=== PATIENT | male | born 1975 | race African-American/Black ===

== ENCOUNTER 2018-06-26 09:42 | Inpatient (IN) | payer OTHER ==
[2018-06-26 10:12] VITALS: BMI 24.7
--- NOTE | 2018-06-26 10:37 | HP ---
CIWA Score Nausea/Vomitin Muscle Tremors: 4-Moderate,w/Arms Extend Anxiety: 4-Mod. Anxious/Guarded Agitation: 0-Normal Activity Paroxysmal Sweats: 1-Minimal Palms Moist Orientation: 0-Oriented Tacttile Disturbances: 2-Mild Itch/Numbness/Burn Auditory Disturbances: 1-Very Mild Visual Disturbances: 2-Mild Sensitivity Headache: 1-Very Mild CIWA-Ar Total Score: 17 - Admission Criteria OASAS Guidelines: Admission for Medically Managed Detox: Requires at least one of the followin. CIWA greater than 12 2. Seizures within the past 24 hours 3. Delirium tremens within the past 24 hours 4. Hallucinations within the past 24 hours 5. Acute intervention needed for co occurring medical disorder 6. Acute intervention needed for co occurring psychiatric disorder 7. Severe withdrawal that cannot be handled at a lower level of care (continued vomiting, continued diarrhea, abnormal vital signs) requiring intravenous medication and/or fluids 8. Patient presents the following: CIWA greater than 12 Admission Criteria Met: Admission criteria met Admission ROS S - HPI Chief Complaint: I don't want to from this, I'm killing myself with alcohol Allergies/Adverse Reactions: Allergies Allergy/AdvReac Type Severity Reaction Status Date / Time No Known Allergies Allergy Verified 06/26/18 10:13 History of Present Illness: 42 yo gentleman here for detox from alcohol. Was in [place] ED last night seeking help, given a 'banana bag' and librium and referred for detox. Denies seizures but has had black outs and gets severe withdrawal symptoms. urine tox + bzo due to librium given in ED - does not use separately. He has a residence but unable to hold down a job. Drinks first thing in the morning to quell his shakes. Exam Limitations: No Limitations - Ebola screening Have you traveled outside of the country in the last 21 days: No (N) Have you had contact with anyone from an Ebola affected area: No Do you have a fever: No - Review of Systems Constitutional: Chills, Loss of Appetite, Malaise, Night Sweats, Changes in sleep, Weakness, Unintentional Wgt. Loss EENT: reports: Blurred Vision Respiratory: reports: No Symptoms reported Cardiac: reports: Chest Tightness GI: reports: Poor Appetite, Poor Fluid Intake, Abdominal cramping : reports: Frequency Musculoskeletal: reports: Back Pain, Joint Pain, Muscle Pain Integumentary: reports: Dryness Neuro: reports: Numbness, Tingling, Tremors Endocrine: reports: No Symptoms Reported Hematology: reports: No Symptoms Reported Psychiatric: reports: Judgement Intact, Mood/Affect Appropiate, Orientated x3, Anxious Other Systems: Reviewed and Negative Patient History - Patient Medical History Hx Anemia: No Hx Asthma: No Hx Chronic Obstructive Pulmonary Disease (COPD): No Hx Cancer: No Hx Cardiac Disorders: No Hx Congestive Heart Failure: No Hx Hypertension: No Hx Hypercholesterolemia: No Hx Pacemaker: No HX Cerebrovascular Accident: No Hx Seizures: No Hx Diabetes: No Hx Gastrointestinal Disorders: No Hx Liver Disease: No Hx Genitourinary Disorders: No Hx Sexually Transmitted Disorders: No Hx Renal Disease (ESRD): No Hx Thyroid Disease: No Hx Human Immunodeficiency Virus (HIV): No Hx Hepatitis C: No Hx Depression: Yes (hospitalized in past, hx meds (zoloft,abilify,seroquel)) Hx Suicide Attempt: Yes (in 2007 - took pills) Hx Bipolar Disorder: Yes (not sure 'they said I do') Hx Schizophrenia: No - Patient Surgical History Past Surgical History: No - PPD History Previous Implant?: Yes Documented Results: Negative w/proof Implanted On Prior R Admission?: No PPD to be Administered?: Yes - Reproductive History Patient is a Female of Child Bearing Age (11 -55 yrs old): No - Smoking Cessation Smoking history: Current every day smoker Have you smoked in the past 12 months: Yes Aproximately how many cigarettes per day: 8 Hx Chewing Tobacco Use: No Initiated information on smoking cessation: Yes 'Breaking Loose' booklet given: 06/26/18 (give on floor) - Substance & Tx. History Hx Alcohol Use: Yes Hx Substance Use: No Substance Use Type: Alcohol Hx Substance Use Treatment: Yes (detox, rehab) - Substances abused Alcohol Substance route: Oral Frequency: Daily Amount used: 2 pints vodka Age of first use: 22 Date of last use: 06/25/18 Family Disease History - Family Disease History Family Disease History: CA: Mother (, breast ca, hx drugs), Other: Father (,murdered,), Mother, Brother (two - living), Son (two - living - ages 19, 6) Admission Physical Exam BHS - Vital Signs Vital Signs: Vital Signs - 24 hr 06/26/18 10:04 Temperature 99.0 F Pulse Rate 87 Respiratory 18 Rate Blood Pressure 125/90 - Physical General Appearance: Yes: Nourished, Appropriately Dressed, Mild Distress HEENTM: Yes: Hearing grossly Normal, Normocephalic, Normal Voice, Pharynx Normal Respiratory: Yes: Normal Breath Sounds, No Respiratory Distress Neck: Yes: No masses,lesions,Nodules Breast: Yes: Breast Exam Deferred Cardiology: Yes: Regular Rhythm Abdominal: Yes: Flat, Soft, Other (mild tenderness LLQ, no rebound) Genitourinary: Yes: Frequency Back: Yes: Normal Inspection Musculoskeletal: Yes: full range of Motion, Gait Steady, Back pain, Muscle Pain Extremities: Yes: Normal Capillary Refill, Normal Inspection, Normal Range of Motion Neurological: Yes: Fully Oriented, Alert, Motor Strength 5/5, Normal Mood/Affect , Normal Response, Numbness Integumentary: Yes: Normal Color, Dry, Warm Lymphatic: Yes: Within Normal Limits - Diagnostic (1) Alcohol dependence with uncomplicated withdrawal Current Visit: Yes Status: Chronic (2) Nicotine dependence Current Visit: Yes Status: Chronic Qualifiers: Nicotine product type: cigarettes Substance use status: uncomplicated Qualified Code(s): F17.210 - Nicotine dependence, cigarettes, uncomplicated (3) Dehydration Current Visit: Yes Status: Chronic Cleared for Admission [facility] - Detox or Rehab [facility] Level of Care: Medically Managed Detox Regimen/Protocol: Librium Inpatient Rehab Admission - Rehab Decision to Admit Inpatient rehab admission?: No
[2018-06-26] MEDS ORDERED: MAGNESIUM HYDROX 2400MG/30ML ORAL SUSPENSION 30 ML CUP PO PRN (10:41)
[2018-06-26] MEDS ORDERED: MENTHOL/PHENOL 1 EACH UD MM PRN (10:41)
[2018-06-26] MEDS ORDERED: chlordiazePOXIDE HCL 25 MG CAPSULE PO PRN (10:41)
[2018-06-26] MEDS ORDERED: ONDANSETRON *ODT* 4 MG TABLET SL PRN (10:41)
[2018-06-26] MEDS ORDERED: ACETAMINOPHEN 325 MG TABLET (FP) PO PRN (10:41)
[2018-06-26] MEDS ORDERED: NICOTINE POLACRILEX 4 MG GUM BUC PRN (10:41)
[2018-06-26] MEDS ORDERED: MAGNESIUM CITRATE 300 ML BOTTLE PO PRN (10:41)
[2018-06-26] MEDS ORDERED: MAG HYDROX/AL HYDROX/SIMETH 30 ML UNIT-DOSE CUP PO PRN (10:41)
[2018-06-26] MEDS ORDERED: BISMUTH SUBSALICYLATE 524 MG/30 ML UD PO PRN (10:41)
[2018-06-26] MEDS ORDERED: chlordiazePOXIDE HCL 25 MG CAPSULE PO ONE (11:00)
[2018-06-26] MEDS ORDERED: chlordiazePOXIDE HCL 25 MG CAPSULE PO SCH (11:00)
[2018-06-26] MEDS: NICOTINE 14 MG/24 HOURS TOPICAL PATCH TD SCH (11:37)
[2018-06-26] MEDS: chlordiazePOXIDE HCL 25 MG CAPSULE PO SCH ×2 (17:50→22:18)
[2018-06-26] MEDS: MELATONIN 5 MG TABLETS PO PRN (22:19)
[2018-06-26] MEDS: THIAMINE HCL 100 MG TABLET (FP) PO SCH (22:20)
[2018-06-26] MEDS: IBUPROFEN 400 MG TABLET (FP) PO PRN (22:22)
[2018-06-27] MEDS: hydrOXYzine PAMOATE 25 MG CAPSULE (FP) PO PRN ×2 (02:16→12:56)
[2018-06-27] MEDS: chlordiazePOXIDE HCL 25 MG CAPSULE PO SCH ×5 (05:58→22:53)
[2018-06-27] MEDS: METHOCARBAMOL 500 MG TABLET PO PRN ×3 (06:00→20:37)
[2018-06-27 10:22] LABS: HEMATOCRIT 40.1 % (35.4-49); HEMOGLOBIN 13.4 GM/dL (11.7-16.9); MCH 32.6 pg (25.7-33.7); MCHC 33.5 g/dl (32.0-35.9); MEAN CELL VOLUME 97.2 fl (80-96); MEAN PLT VOLUME 10.1 fl (7.5-11.1); PLATELET COUNT 118 K/MM3 (134-434); RBC 4.12 M/mm3 (4.00-5.60); RDW 14.5 % (11.9-15.9); WHITE BLOOD COUNT 4.6 K/mm3 (4.0-10.0)
[2018-06-27 10:32] LABS: ALBUMIN 3.2 g/dl (3.4-5.0); BILIRUBIN,TOTAL 0.5 mg/dL (0.2-1); CALCIUM 8.8 mg/dL (8.5-10.1); CREATININE 0.5 mg/dL (0.55-1.3); POTASSIUM 3.6 mmol/L (3.5-5.1); TOT PROT 5.8 g/dl (6.4-8.2)
[2018-06-27] MEDS: PRENATAL VITAMINS W/ FOLIC ACID TABLET (FP) PO SCH (10:48)
[2018-06-27] MEDS: NICOTINE 14 MG/24 HOURS TOPICAL PATCH TD SCH (10:49)
--- NOTE | 2018-06-27 12:22 | EKG ---
Test Reason : Blood Pressure : / mmHG Vent. Rate : 072 BPM Atrial Rate : 072 BPM P-R Int : 158 ms QRS Dur : 090 ms QT Int : 392 ms P-R-T Axes : 063 064 056 degrees QTc Int : 429 ms NORMAL SINUS RHYTHM NORMAL ECG NO PREVIOUS ECGS AVAILABLE Confirmed by NIKHIL THORPE MD ([id number]) on 06/27/2018 12:22:34 PM Referred By: Confirmed By:NIKHIL THORPE MD
--- NOTE | 2018-06-27 15:07 | PN ---
[facility] CIWA - CIWA Score Nausea/Vomitin-Mild Nausea/No Vomiting Muscle Tremors: 4-Moderate,w/Arms Extend Anxiety: 4-Mod. Anxious/Guarded Agitation: 3 Paroxysmal Sweats: 3 Orientation: 0-Oriented Tacttile Disturbances: 0-None Auditory Disturbances: 0-None Visual Disturbances: 0-None Headache: 0-None Present CIWA-Ar Total Score: 15 S Progress Note (SOAP) Subjective: Lots of sweating (soaked), interrupted sleep, anxious Objective: 06/27/18 15:03 Last Vital Signs Temp Pulse Resp BP Pulse Ox 97.6 F 87 18 142/92 06/27/18 14:21 06/27/18 14:21 06/27/18 14:21 06/27/18 14:21 Elevated b/p: 142/92 (denies htn; started on clonidine 0.1mg PO q8hr prn if b/p > 140/90 Laboratory Tests 06/27/18 06/27/18 06/27/18 07:50 07:50 07:50 WBC 4.6 RBC 4.12 Hgb 13.4 Hct 40.1 MCV 97.2 H MCH 32.6 MCHC 33.5 RDW 14.5 Plt Count 118 L MPV 10.1 Sodium 139 Potassium 3.6 Chloride 105 Carbon Dioxide 28 Anion Gap 5 L BUN 9 Creatinine 0.5 L Est GFR (CKD-EPI)AfAm 156.00 Est GFR (CKD-EPI)NonAf 134.60 Random Glucose 101 Calcium 8.8 Total Bilirubin 0.5 AST 73 H ALT 104 H Alkaline Phosphatase 85 Total Protein 5.8 L Albumin 3.2 L RPR Titer Nonreactive Labs reviewed: plt 118 Assessment: 06/27/18 15:07 Withdrawal symptoms Noted with mild thrombocytopenia and elevated b/p Plan: Continue detox Encouraged PO water intake Thrombocytopenia: most likely r/t alcoholism, encouraged abstinence from alcohol , follow up with PCP for monitoring Elevated b/p: denies htn; start clonidine 0.1mg PO q8hr prn if b/p > 140/90
[2018-06-27] MEDS: cloNIDine HCL 0.1 MG TABLET PO PRN (18:17)
--- NOTE | 2018-06-27 18:49 | PN ---
BHS Progress Note Note: C/o increased anxiety. Vital Signs 06/27/18 06/27/18 14:21 18:18 Temperature 97.6 F 97.2 F L Pulse Rate 87 82 Respiratory 18 18 Rate Blood Pressure 142/92 117/82 Medications adjusted.
[2018-06-27] MEDS: hydrOXYzine PAMOATE 50 MG CAPSULE (FP) PO PRN (20:37)
[2018-06-27] MEDS: THIAMINE HCL 100 MG TABLET (FP) PO SCH (22:53)
[2018-06-27] MEDS: NAPROXEN 375 MG TABLET (FP) PO PRN (22:53)
[2018-06-27] MEDS: MELATONIN 5 MG TABLETS PO PRN (22:53)
[2018-06-28] MEDS: chlordiazePOXIDE HCL 25 MG CAPSULE PO SCH (05:50)
[2018-06-28] MEDS: METHOCARBAMOL 500 MG TABLET PO PRN (05:52)
[2018-06-28] MEDS: hydrOXYzine PAMOATE 50 MG CAPSULE (FP) PO PRN ×3 (05:52→22:23)
[2018-06-28] MEDS ORDERED: chlordiazePOXIDE HCL 10 MG CAPSULE PO PRN (11:00)
[2018-06-28] MEDS: NICOTINE 14 MG/24 HOURS TOPICAL PATCH TD SCH (11:28)
[2018-06-28] MEDS: PRENATAL VITAMINS W/ FOLIC ACID TABLET (FP) PO SCH (11:28)
[2018-06-28] MEDS: chlordiazePOXIDE HCL 10 MG CAPSULE PO SCH ×3 (11:28→22:19)
--- NOTE | 2018-06-28 13:58 | PN ---
[facility] CIWA - CIWA Score Nausea/Vomitin-No Nausea/No Vomiting Muscle Tremors: None Anxiety: 4-Mod. Anxious/Guarded Agitation: 1-Slight > Activity Paroxysmal Sweats: 3 Orientation: 0-Oriented Tacttile Disturbances: 2-Mild Itch/Numbness/Burn Auditory Disturbances: 0-None Visual Disturbances: 1-Very Mild Sensitivity Headache: 0-None Present CIWA-Ar Total Score: 11 BHS Progress Note (SOAP) Subjective: Sweating, Interrupted Sleep, Anxious. Objective: PATIENT A & O X 3, OBSERVED AMBULATING ON UNIT UNASSISTED. IN NO ACUTE DISTRESS. 06/28/18 13:59 Vital Signs Temperature 97.3 F L 06/28/18 09:28 Pulse Rate 81 06/28/18 09:28 Respiratory Rate 18 06/28/18 09:28 Blood Pressure 119/53 L 06/28/18 09:28 O2 Sat by Pulse Oximetry (%) Laboratory Tests 06/27/18 06/27/18 06/27/18 07:50 07:50 07:50 WBC 4.6 RBC 4.12 Hgb 13.4 Hct 40.1 MCV 97.2 H MCH 32.6 MCHC 33.5 RDW 14.5 Plt Count 118 L MPV 10.1 Sodium 139 Potassium 3.6 Chloride 105 Carbon Dioxide 28 Anion Gap 5 L BUN 9 Creatinine 0.5 L Est GFR (CKD-EPI)AfAm 156.00 Est GFR (CKD-EPI)NonAf 134.60 Random Glucose 101 Calcium 8.8 Total Bilirubin 0.5 AST 73 H ALT 104 H Alkaline Phosphatase 85 Total Protein 5.8 L Albumin 3.2 L RPR Titer Nonreactive Assessment: 06/28/18 13:59 WITHDRAWAL SYMPTOMS. ELEAVTED LIVER ENZYMES (AST, ALT). THROMBOCYTOPENIA. 06/28/18 14:02 Plan: CONTINUE DETOX. TRAZODONE, 50 MG PO HS PRN INSOMNIA (PATIENT REPORTS POOR EFFECT FROM MELATONIN) .
[2018-06-28] MEDS: NICOTINE 21 MG/24 HOURS TOPICAL PATCH TD SCH (15:28)
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
[2018-06-28] MEDS: NAPROXEN 375 MG TABLET (FP) PO PRN (18:06)
[2018-06-28] MEDS ORDERED: QUEtiapine FUMARATE 50 MG TABLET PO SCH (22:00)
[2018-06-28] MEDS ORDERED: GABAPENTIN 300 MG CAPSULE (FP) PO SCH (22:00)
[2018-06-28] MEDS: QUEtiapine FUMARATE 50 MG TABLET PO SCH (22:19)
[2018-06-28] MEDS: traZODone HCL 50 MG TABLET (FP) PO PRN (22:20)
[2018-06-28] MEDS: THIAMINE HCL 100 MG TABLET (FP) PO SCH (22:24)
[2018-06-28] MEDS: MELATONIN 5 MG TABLETS PO PRN (23:33)
[2018-06-29] MEDS: chlordiazePOXIDE HCL 10 MG CAPSULE PO SCH ×3 (06:06→22:23)
[2018-06-29] MEDS: NAPROXEN 375 MG TABLET (FP) PO PRN (06:10)
[2018-06-29] MEDS ORDERED: NICOTINE POLACRILEX 2 MG GUM BUC PRN (07:34)
[2018-06-29] MEDS: NICOTINE 21 MG/24 HOURS TOPICAL PATCH TD SCH (10:11)
[2018-06-29] MEDS: PRENATAL VITAMINS W/ FOLIC ACID TABLET (FP) PO SCH (10:11)
[2018-06-29] MEDS: METHOCARBAMOL 500 MG TABLET PO PRN ×2 (10:15→17:58)
[2018-06-29] MEDS: hydrOXYzine PAMOATE 50 MG CAPSULE (FP) PO PRN ×2 (10:15→17:55)
--- NOTE | 2018-06-29 10:30 | PN ---
S Progress Note (SOAP) Subjective: alert,irritable,anxious,interrupted sleep Objective: 06/29/18 10:29 Vital Signs Temperature 97.3 F L 06/29/18 09:25 Pulse Rate 87 06/29/18 09:25 Respiratory Rate 18 06/29/18 09:25 Blood Pressure 113/77 06/29/18 09:25 O2 Sat by Pulse Oximetry (%) Assessment: 06/29/18 10:29 withdrawal symptom Plan: continue detox,discharge in am
[2018-06-29] MEDS: IBUPROFEN 400 MG TABLET (FP) PO PRN (13:14)
[2018-06-29] MEDS: cloNIDine HCL 0.1 MG TABLET PO PRN (13:14)
[2018-06-29] MEDS: MELATONIN 5 MG TABLETS PO PRN (22:23)
[2018-06-29] MEDS: THIAMINE HCL 100 MG TABLET (FP) PO SCH (22:23)
[2018-06-29] MEDS: QUEtiapine FUMARATE 50 MG TABLET PO SCH (22:23)
[2018-06-29] MEDS: traZODone HCL 50 MG TABLET (FP) PO PRN (22:23)
[2018-06-30] MEDS: PRENATAL VITAMINS W/ FOLIC ACID TABLET (FP) PO SCH (10:18)
[2018-06-30] MEDS: hydrOXYzine PAMOATE 50 MG CAPSULE (FP) PO PRN (10:19)
[2018-06-30] MEDS: chlordiazePOXIDE HCL 10 MG CAPSULE PO SCH (10:20)
[2018-06-30] MEDS: NICOTINE 21 MG/24 HOURS TOPICAL PATCH TD SCH (10:20)
[2018-06-30 10:56] VITALS: BP 123/83; PULSE 93; TEMP 96.8
--- NOTE | 2018-06-30 15:09 | DS ---
[facility] Detox Discharge Summary Admission Date: 06/26/18 Discharge Date: 06/30/18 - History Present History: Alcohol Dependence Additional Comments: PATIENT GOING TO [facility] ([place], [place]) FOR AFTERCARE. PATIENT WAS DISCHARGED FROM DETOX UNIT IN STABLE MEDICAL CONDITION. Pertinent Past History: Depression, Bipolar Disorder, Dehydration, Elevated Liver Enzymes (While admitted for Detox), Thrombocytopenia (While admitted for Detox), Nicotine Dependence. - Physical Exam Results Vital Signs: Vital Signs Temperature 96.8 F L 06/30/18 10:55 Pulse Rate 93 H 06/30/18 10:55 Respiratory Rate 20 06/30/18 10:55 Blood Pressure 123/83 06/30/18 10:55 O2 Sat by Pulse Oximetry (%) Pertinent Admission Physical Exam Findings: WITHDRAWAL SYMPTOMS. Laboratory Tests 06/27/18 06/27/18 06/27/18 07:50 07:50 07:50 WBC 4.6 RBC 4.12 Hgb 13.4 Hct 40.1 MCV 97.2 H MCH 32.6 MCHC 33.5 RDW 14.5 Plt Count 118 L MPV 10.1 Sickle Cell Screen Negative Sodium 139 Potassium 3.6 Chloride 105 Carbon Dioxide 28 Anion Gap 5 L BUN 9 Creatinine 0.5 L Est GFR (CKD-EPI)AfAm 156.00 Est GFR (CKD-EPI)NonAf 134.60 Random Glucose 101 Calcium 8.8 Total Bilirubin 0.5 AST 73 H ALT 104 H Alkaline Phosphatase 85 Total Protein 5.8 L Albumin 3.2 L RPR Titer 06/27/18 07:50 WBC RBC Hgb Hct MCV MCH MCHC RDW Plt Count MPV Sickle Cell Screen Sodium Potassium Chloride Carbon Dioxide Anion Gap BUN Creatinine Est GFR (CKD-EPI)AfAm Est GFR (CKD-EPI)NonAf Random Glucose Calcium Total Bilirubin AST ALT Alkaline Phosphatase Total Protein Albumin RPR Titer Nonreactive LABS NOTED. - Treatment Hospital Course: Detox Protocol Followed, Detoxed Safely, Responded well, Discharged Condition Good, Rehab Referral Accepted Patient has Accepted a Rehab Referral to: [facility] ([place], [place]). - Medication Discharge Medications: Ambulatory Orders NK [No Known Home Medication] 06/26/18 - Diagnosis (1) Alcohol-induced mood disorder Status: Acute (2) Alcohol-induced sleep disorder Status: Acute (3) Elevated liver enzymes Status: Acute (4) Thrombocytopenia Status: Acute (5) Alcohol dependence with uncomplicated withdrawal Status: Acute (6) Dehydration Status: Chronic (7) Nicotine dependence Status: Chronic Qualifiers: Nicotine product type: cigarettes Substance use status: uncomplicated Qualified Code(s): F17.210 - Nicotine dependence, cigarettes, uncomplicated - AMA Did Patient Leave Against Medical Advice: No
== END 2018-06-30 11:41 | disposition other institution (70) | DRG 775 ==
LOC: YASAS 09:42 → Y6N 10:44
PROVIDERS: ADMIT Surgery; ATTEND Surgery
PROC: HZ2ZZZZ Detoxification Services for Substance Abuse Treatment (ICD-10-PCS; principal; 2018-06-26)
DX: F10.230 Alcohol dependence with withdrawal, uncomplicated (principal); F17.213 Nicotine dependence, cigarettes, with withdrawal; F31.9 Bipolar disorder, unspecified; F10.24 Alcohol dependence with alcohol-induced mood disorder; F10.282 Alcohol dependence with alcohol-induced sleep disorder; D69.6 Thrombocytopenia, unspecified; E86.0 Dehydration; Z91.5 Personal history of self-harm
CPT/HCPCS: 36415; 80053; 85027; 85660; 86593; 93005; 93010; J0735

== ENCOUNTER 2020-10-08 12:44 | Inpatient (IN) | payer OTHER ==
[2020-10-08 14:14] VITALS: BMI 26.7
[2020-10-08] MEDS ORDERED: BISMUTH SUBSALICYLATE 524 MG/30 ML PO PRN (14:56)
[2020-10-08] MEDS ORDERED: traZODone HCL 100 MG TABLET (FP) PO PRN (14:56)
[2020-10-08] MEDS ORDERED: LORazepam 2 MG TABLET PO ONE (14:56)
[2020-10-08] MEDS ORDERED: MAGNESIUM HYDROX 2400MG/30ML ORAL SUSPENSION 30 ML CUP PO PRN (14:56)
[2020-10-08] MEDS ORDERED: LORazepam 1 MG TABLET PO PRN (14:56)
[2020-10-08] MEDS ORDERED: IBUPROFEN 400 MG TABLET (FP) PO PRN (14:56)
[2020-10-08] MEDS ORDERED: ONDANSETRON *ODT* 4 MG TABLET SL PRN (14:56)
[2020-10-08] MEDS ORDERED: MENTHOL/PHENOL 1 EACH UD MM PRN (14:56)
[2020-10-08] MEDS ORDERED: NICOTINE POLACRILEX 4 MG GUM BUC PRN (14:56)
[2020-10-08] MEDS ORDERED: ACETAMINOPHEN 325 MG TABLET (FP) PO PRN ×2 (14:56)
[2020-10-08] MEDS ORDERED: MAGNESIUM CITRATE 300 ML BOTTLE PO PRN (14:56)
[2020-10-08] MEDS ORDERED: MAG HYDROX/AL HYDROX/SIMETH 30 ML UNIT-DOSE CUP PO PRN (14:56)
[2020-10-08] MEDS: hydrOXYzine PAMOATE 25 MG CAPSULE (FP) PO SCH ×2 (17:08→22:34)
[2020-10-08] MEDS: LORazepam 2 MG TABLET PO SCH ×2 (17:09→22:34)
[2020-10-08] MEDS: METHOCARBAMOL 500 MG TABLET PO PRN (17:17)
[2020-10-08] MEDS ORDERED: THIAMINE HCL 100 MG TABLET (FP) PO SCH (22:00)
[2020-10-08] MEDS ORDERED: MELATONIN 5 MG TABLETS PO SCH (22:00)
[2020-10-08] MEDS: levETIRAcetam 500 MG TABLET (FP) PO SCH (22:34)
[2020-10-09] MEDS: LORazepam 2 MG TABLET PO SCH ×2 (06:14→10:35)
[2020-10-09] MEDS: hydrOXYzine PAMOATE 25 MG CAPSULE (FP) PO SCH (06:15)
[2020-10-09] MEDS ORDERED: hydrOXYzine PAMOATE 25 MG CAPSULE (FP) PO PRN (09:32)
[2020-10-09] MEDS ORDERED: ALBUTEROL SO4 HFA INHALER IH PRN (09:33)
[2020-10-09] MEDS ORDERED: levETIRAcetam 500 MG TABLET (FP) PO SCH (10:00)
[2020-10-09] MEDS ORDERED: PRENATAL VITAMINS W/ FOLIC ACID TABLET (FP) PO SCH (10:00)
[2020-10-09] MEDS: levETIRAcetam 500 MG TABLET (FP) PO SCH (10:34)
[2020-10-09 10:37] LABS: HEMATOCRIT 36.1 % (35.4-49); HEMOGLOBIN 12.2 GM/dL (11.7-16.9); MCH 32.4 pg (25.7-33.7); MCHC 33.7 g/dl (32.0-35.9); MEAN CELL VOLUME 95.9 fl (80-96); MEAN PLT VOLUME 9.2 fl (7.5-11.1); PLATELET COUNT 145 10^3/uL (134-434); RBC 3.76 M/mm3 (4.00-5.60); RDW 15.3 % (11.9-15.9); WHITE BLOOD COUNT 4.8 K/mm3 (4.0-10.0)
[2020-10-09 10:40] LABS: ALBUMIN 2.9 g/dl (3.4-5.0); CALCIUM 8.4 mg/dL (8.5-10.1)
[2020-10-09 10:41] LABS: BLOOD UREA NITROGEN 13.1 mg/dL (7-18)
[2020-10-09 10:44] LABS: CREATININE 0.8 mg/dL (0.55-1.3)
[2020-10-09 10:45] LABS: BILIRUBIN,TOTAL 0.8 mg/dL (0.2-1); TOT PROT 5.7 g/dl (6.4-8.2)
[2020-10-09] MEDS: METHOCARBAMOL 500 MG TABLET PO PRN (11:55)
[2020-10-09 13:31] VITALS: BP 140/94; PULSE 90; TEMP 97.1
[2020-10-09] MEDS ORDERED: QUEtiapine FUMARATE 200 MG TABLET PO SCH (22:00)
[2020-10-10] MEDS ORDERED: LORazepam 1 MG TABLET PO SCH (05:00)
[2020-10-11] MEDS ORDERED: LORazepam 0.5 MG TABLET PO PRN
[2020-10-11] MEDS ORDERED: LORazepam 0.5 MG TABLET PO SCH (05:00)
[2020-10-12] MEDS ORDERED: LORazepam 0.5 MG TABLET PO ONE (05:00)
== END 2020-10-09 12:42 | disposition left against medical advice (07) | DRG 770 ==
LOC: YASAS 12:44 → Y3N 15:15
PROVIDERS: ADMIT Allergy & Immunology; ATTEND Allergy & Immunology
PROC: HZ2ZZZZ Detoxification Services for Substance Abuse Treatment (ICD-10-PCS; principal; 2020-10-08)
DX: F10.230 Alcohol dependence with withdrawal, uncomplicated (principal); F17.210 Nicotine dependence, cigarettes, uncomplicated; F10.282 Alcohol dependence with alcohol-induced sleep disorder; F10.280 Alcohol dependence with alcohol-induced anxiety disorder; F10.24 Alcohol dependence with alcohol-induced mood disorder; F39 Unspecified mood [affective] disorder; F43.10 Post-traumatic stress disorder, unspecified; G40.509 Epileptic seizures related to external causes, not intractable, without status epilepticus; Z86.69 Personal history of other diseases of the nervous system and sense organs
CPT/HCPCS: 36415; 80053; 85027; 86780; C9803; U0003; U0005